=== PATIENT | female | born 1965 | race Caucasian/White ===

== ENCOUNTER 2016-10-20 16:09 | Observation (INO) | payer OTHER ==
--- NOTE | ~2016-10-20 | HP ---
History And Physical [facility] [id number] [place]. 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 CHIEF COMPLAINT: Palpitations, shortness of breath, and chest pain. HISTORY OF PRESENT ILLNESS: This is a very pleasant 51-year-old female with history of Jacinto's thyroiditis and PVCs who states over the last 5 days, she has experienced increased shortness of breath with her normal activities. She is also having intermittent "sharp" chest pain lasting approximately 30 seconds. She has a history of PVCs, seen in the past at [facility] and diagnosed with bigeminal PVCs. She uses a phone rossy by [employer] called Srinivas and she has recently transmitted her strips to her behavioral health aide at [facility] but she shows these to me as well and there is a lot of underlying artifact. No PVCs appreciated by myself in reviewing a few of these. She does state that she has had increased palpitations also over the last week with some mild dizziness. With all of these symptoms, she came to our emergency department around 4 p.m. yesterday and was admitted to our chest pain observation unit. Her troponins have been negative, and EKG did not indicate any ischemia. There is no evidence of major arrhythmia on telemetry. Of note, her TSH is 0.072 this admission and she states her prior TSH was 0.45. Dr. Tracy, her it application architect increased her [place] Thyroid within the last month. The patient denies any fever or chills but has had intermittent cough usually when she takes a deep breath now occurring over several months. Denies orthopnea or PND or lower extremity edema. No recent long distance travel over the last month. Denies calf tenderness. Denies personal history for MN, CVA, PE, or DVT. MEDICAL HISTORY: 1. 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 2. Bigeminy PVCs, scheduled to see Dr. Avila in October. 3. Reported history of stress echocardiogram around 2013 which was normal. 4. Type 2 diabetes mellitus/borderline diabetic on metformin. 5. Obesity. SURGICAL HISTORY: 1. Rhinoplasty. 2. Abdominoplasty. 3. Breast augmentation and reduction. HOME MEDICATIONS: 1. Vitamin C 500 b.i.d. 2. Aspirin 81 at bedtime. 3. Vitamin D 400 b.i.d. 4. Coenzyme Q10 200 mg b.i.d. 5. Melatonin 5 mg at bedtime. 6. Fortamet 500 with lunch. History And Physical [address] [address] NAME: AD MCCULLOUGH : 67 STATUS : ADM Emmett PAT#: [id number] AGE: 51 ADM/REG DATE : 10/20/16 MR#: [id number] REPORT SERV DATE: 10/21/16 DICTATED BY: VANNESA SCHWARZ DATE: 10/21/16 REPORT STATUS : Draft TRANSCRIBED BY: DENISE DATE: 10/21/16 7. [place] fish oil 1000 mg b.i.d. 8. Prometrium 400 at bedtime. 9. Aldactone 50 with lunch. 10.[place] Thyroid 30 daily at 2 p.m. and 60 mg every morning. 11.Vitamin E [id number] 1 tab b.i.d. 12.Antioxidant 1 tab b.i.d. 13.Garlic supplement 1 tab b.i.d. 14.Calcium and magnesium zeiy-wjv-hbcayco 1 tab b.i.d. 15.Joint complex qsid-mmz-rgapodc 1 tab b.i.d. 16.Selenium 1 tab b.i.d. 17.Zinc, vitamin B6, and lipoic acid as well one tab b.i.d. 18.Estrogen testosterone 1 unit IM every 5 months. ALLERGY: To Demerol, causes violent illness and nausea and vomiting. SOCIAL HISTORY: The patient is . Her family has founded [employer] and she works for that organization. She smoked in her 20s but has not smoked since then. Has an occasional alcoholic drink perhaps once a week. Denies caffeine intake or illicit drug use. FAMILY HISTORY: Father with hypertension. Mother of cancer and pneumonia. No premature cardiovascular disease among her first-degree relatives. REVIEW OF SYSTEMS: Negative except as indicated above. PHYSICAL EXAMINATION: VITAL SIGNS: Blood pressure 97/50, heart rate 50, temperature 98.7, and pulse oximetry 98% room air. BMI 32.6. GENERAL: Well developed, well nourished, in no acute distress. HEENT: Anicteric. Normal EOM. Head normocephalic. PERRLA, no xanthelasma. NECK: Supple. No JVD. Carotids normal without bruits. LUNGS: Clear to auscultation bilaterally anterior and posterior. Respirations even and unlabored. CARDIAC: S1, S2 regular rate and rhythm. No murmurs, rubs, or gallops. No chest wall tenderness. ABDOMEN: Normal bowel sounds. Soft and nontender to palpation. No masses or organomegaly. EXTREMITIES: No peripheral edema. DP/PT and radial pulses palpable bilaterally. No clubbing or cyanosis. SKIN: Warm and dry. Normal turgor. No pallor or cyanosis. MUSCULOSKELETAL: Moving all extremities x4. Normal muscle strength. NEURO/PSYCH: Alert and oriented with appropriate affect. LABORATORY DATA: White blood count 6.9, hemoglobin 14.1, and hematocrit 41.6. D-dimer less than 0.27. Sodium 139, potassium 4.1, BUN 13, creatinine 0.6, glucose was 165. TSH 0.072. Troponin less than 0.02 x2. Chest x-ray shows no acute cardiopulmonary processes. EKG interpreted by myself indicates sinus bradycardia and normal sinus rhythm with no indication History And Physical [address] [address] NAME: AD MCCULLOUGH : 67 STATUS : ADM Emmett PAT#: [id number] AGE: 51 ADM/REG DATE : 10/20/16 MR#: [id number] REPORT SERV DATE: 10/21/16 DICTATED BY: VANNESA SCHWARZ DATE: 10/21/16 REPORT STATUS : Draft TRANSCRIBED BY: DENISE DATE: 10/21/16 of ischemia. Review of telemetry indicates sinus samson and sinus rhythm with no evidence of dysrhythmias. ASSESSMENT AND PLAN: 1. Dyspnea on exertion. Chest x-ray is clear as well as white blood count. I have also checked a D-dimer which was normal. We will plan to check an outpatient echocardiogram and then recommend Pulmonary followup if this does not show any evidence of abnormalities. 2. Atypical chest pains which are very brief in nature. Troponins and EKGs have been negative. Counseled the patient that these are very unlikely to be due to coronary artery disease. She may be experiencing some PVCs or maybe having these brief chest pains from her thyroiditis. 3. Palpitations with history of PVCs. No significant PVCs noted on telemetry. Her palpitations may be due to her hyperthyroidism. We will plan to send her home with a 24-hour Holter monitor, and I will attempt to move up her followup with Dr. Avila. Of note, the patient has been intolerant of beta-blockers in the past secondary to her low blood pressure. 4. Jacinto's thyroiditis with TSH of 0.072. Prior TSH was reportedly 0.45. The patient states that she will go ahead and decrease her [place] Thyroid to 45 mg daily dose with the addition of a 30 at 2 p.m. I recommended followup with her it application architect. 5. Plan above was discussed with the patient, and she agrees. We will discharge her home. DBT/MODL Vannesa Schwarz NP / [id number] CC: Cristiane Llamas, MSN, REGIONAL SALES REPRESENTATIVE-BC Kilo Avila M.D.
[2016-10-20 16:54] LABS: BASOPHILS 0.6 %; BASOPHILS ABSOLUTE 0.04 10/3/uL (0.0-0.16); EOSINOPHILS 5.2 %; EOSINOPHILS ABSOLUTE 0.36 10/3/uL (0.0-0.53); ER CBC TAT 0 Hrs 11 Mins; HEMATOCRIT 41.6 % (36.0-48.0); HEMOGLOBIN 14.1 g/dL (12.0-16.0); IMMATURE GRANULOCYTES 0.1 %; IMMATURE GRANULOCYTES ABSOLUTE 0.01 10/3/uL (0.0-0.11); LYMPHOCYTES ABSOLUTE 1.52 10/3/uL (0.67-4.30); MEAN CORPUS HGB CONC 33.9 g/dL (32.0-36.0); MEAN CORPUSCULAR HEMOGLOB 29.2 pg (26.0-34.0); MEAN CORPUSCULAR VOLUME 86.1 fL (80-100); MEAN PLATELET VOLUME 11.1 fL (9.2-13.0); MONOCYTES 7.9 %; MONOCYTES ABSOLUTE 0.55 10/3/uL (0.21-1.20); NEUTROPHILS 64.2 %; NEUTROPHILS ABSOLUTE 4.44 10/3/uL (2.02-8.40); PLATELET COUNT 291 10/3/uL (150-400); RBC DISTRIBUTION WIDTH 12.9 % (12.0-16.0); RED CELL COUNT 4.83 10/6/uL (4.0-5.6); WHITE BLOOD CELLS 6.9 10/3/uL (4.5-10.5)
[2016-10-20 16:55] LABS: MANUAL DIFF NO %
[2016-10-20 17:01] LABS: PARTIAL THROMBO TIME 25.8 SEC (22.5-37.2); PROTIME (NOT ORD) 13.1 SEC (12.0-14.5)
[2016-10-20 17:11] LABS: BUN (BLOOD UREA NITROGEN) 13 MG/DL (6-23); CHEST PAIN PROFILE TAT 0 Hrs 28 Mins; CHLORIDE, SERUM 107 MMOL/L (96-112); CO2 (CARBON DIOXIDE) 27 MMOL/L (24-34); CREATININE 0.69 MG/DL (0.55-1.02); GFR AFRICAN AMERICAN 118 ML/MIN (>=60); GFR NON AFRICAN AMERICAN 102 ML/MIN (>=60); GLUCOSE, SERUM 165 MG/DL (60-99); POTASSIUM, SERUM 4.1 MMOL/L (3.5-5.3); SODIUM, SERUM 139 MMOL/L (135-148); TROPONIN I <0.02 NG/ML (<0.05)
[2016-10-20 19:42] LABS: ULTRASENSITIVE TSH 0.072 MCIU/ML (0.358-3.740)
[2016-10-20] MEDS ORDERED: FORTAMET500 MG PO (19:59)
[2016-10-20] MEDS ORDERED: SPIRO50 PO (19:59)
[2016-10-20] MEDS ORDERED: FISH-EPA1000 MG PO (20:00)
[2016-10-20] MEDS ORDERED: MELATONIN5 M1 PO (20:00)
[2016-10-20] MEDS ORDERED: VITAMIN D400 UNI1 PO (20:01)
[2016-10-20] MEDS ORDERED: ARMOUR THYRO60 MG PO (20:01)
[2016-10-20] MEDS ORDERED: ARMOUR THYRO30 MG PO (20:02)
[2016-10-20] MEDS ORDERED: PROMETRIUM200 MG PO (20:03)
[2016-10-20] MEDS ORDERED: ASAB PO (20:03)
[2016-10-20] MEDS ORDERED: VITAMIN E OTC PO (20:04)
[2016-10-20] MEDS ORDERED: VITC500 PO (20:04)
[2016-10-20] MEDS ORDERED: VITAMIN E PO (20:07)
[2016-10-20] MEDS ORDERED: [UNRECOGNIZED DRUG - OTHER] PO (20:07)
[2016-10-20] MEDS ORDERED: GARLIC OTC PO (20:07)
[2016-10-20] MEDS ORDERED: [UNRECOGNIZED DRUG - MIXTURE] PO (20:08)
[2016-10-20] MEDS ORDERED: CO Q-10200 MG PO (20:08)
[2016-10-20] MEDS ORDERED: [UNRECOGNIZED DRUG - OTHER] PO (20:09)
[2016-10-20] MEDS ORDERED: ZINC PO (20:10)
[2016-10-20] MEDS ORDERED: SELENIUM OTC PO (20:10)
[2016-10-20] MEDS ORDERED: [UNRECOGNIZED DRUG - OTHER] PO (20:11)
[2016-10-20] MEDS ORDERED: VIT B PO (20:11)
[2016-10-20] MEDS ORDERED: ESTROGEN/TESTOSTERON IM (20:14)
[2016-10-21] MEDS ORDERED: ARMOUR THYRO60 MG PO (12:30)
[2016-10-21] MEDS ORDERED: ARMOUR THYRO90 MG PO (12:32)
== END 2016-10-21 13:00 | disposition home or self-care (01) ==
LOC: ER 16:09 → CDU1 19:25 → CDU2 19:35
PROVIDERS: Hospitalist
DX: R06.00 Dyspnea, unspecified (principal); R07.89 Other chest pain; I49.3 Ventricular premature depolarization; E06.3 Autoimmune thyroiditis; E11.9 Type 2 diabetes mellitus without complications; E66.9 Obesity, unspecified; Z68.32 Body mass index [BMI] 32.0-32.9, adult; Z88.5 Allergy status to narcotic agent; Z87.891 Personal history of nicotine dependence; Z82.49 Family history of ischemic heart disease and other diseases of the circulatory system; Z83.6 Family history of other diseases of the respiratory system; Z80.9 Family history of malignant neoplasm, unspecified; Z79.82 Long term (current) use of aspirin; Z79.890 Hormone replacement therapy; Z79.899 Other long term (current) drug therapy; Z98.890 Other specified postprocedural states
CPT/HCPCS: 71020; 80048; 83735; 84443; 84484; 85025; 85379; 85610; 85730; 93005; 93225; 99285; A9270-GY; G0378